=== PATIENT | female | born 1965 | race Caucasian/White ===

== ENCOUNTER 2022-04-18 00:14 | Day surgery (SDC) | payer BC, SELFPAY ==
[2022-04-04 15:07] VITALS: BMI 28.5
[2022-04-18 08:02] VITALS: BP 144/110; PULSE 69; RESP 18; TEMP 36.3; O2SAT 100
[2022-04-18] MEDS: LACTATED RINGERS 1,000 ML 150 ML IV CONT (08:10)
--- NOTE | 2022-04-18 08:48 | WPDANESEPPF ---
Anes - Initial Pre Proc Eval Procedure: Operation Date: 04/18/22 09:30 Proposed Procedures p Colonoscopy - Nathaniel Palacios MD Date/Time: 04/18/22 08:48 Surgeon: Nathaniel Palacios MD Pre Op Diagnosis: Occult GI bleed, Change in bowel habits Patient Data Age: 56 Gender: F Height: 1.68 m Weight: 79.3 kg Last Vital Signs Temp 97.4 F L 04/18/22 08:02 Pulse 69 04/18/22 08:02 Resp 18 04/18/22 08:02 BP 144/110 H 04/18/22 08:02 Pulse Ox 100 04/18/22 08:02 O2 Del Method Room Air 04/18/22 08:02 Allergies Allergy/AdvReac Type Severity Reaction Status Date / Time No Known Allergies Allergy Verified 04/18/22 08:01 Home Medications Medication Instructions Recorded Confirmed Type sodium sul 1.479 gram-potas ch See Rx Instructions PO PER PKG DIR 02/20/22 04/18/22 Rx 0.188 gram-magnes sul 0.225 gram #24 tabs tablet (Sutab) Patient hx anesthesia problems: none Family hx anesthesia problems: none Results Review: All pre-operative results and documents have been reviewed as part of the pre-operative evaluation. [facility] Social History Social History Smoking status: Former smoker Tobacco type: cigarettes Alcohol intake: current Alcohol use details: occasional use Substance use: never Substance use type: does not use Living arrangements: with family Spiritual care concerns: No Anes - Eval Final PreProcedure Day of Procedure 04/18/22 08:48 Patient weight: normal Heart: regular rate and rhythm Lungs: clear to auscultation Airway: Mallampati scale class II Neurological: alert and oriented Last oral intake: >/= 8 hours ASA classification: II Emergent: no Anesthetic plan: proceed Anesthesia type and monitoring: general GIVS and standard monitoring Results Review: All pre-operative results and documents have been reviewed as part of the pre-operative evaluation. Informed Consent: The patient's anesthetic plan and its attendant risks and benefits were discussed with the patient/family/POA. Questions were solicited and answers provided to the satisfaction of the patient/family/POA.
--- NOTE | 2022-04-18 08:54 | PM.HPGS ---
History of Present Illness History of Present Illness Consent: Risks, benefits, and alternatives have been discussed and questions answered. Patient agrees to proceed with procedure. Chief complaint: Occult GI bleed, Change in bowel habits Narrative: Shelby Abrams is a 56 year old female with small amount of blood after BM, last colonoscopy 2018 Review of Systems Constitutional: Constitutional: Denies headache(s) and Denies weakness Eyes: Eyes: Denies blurry vision ENT: Reports Normal hearing present, Denies headache(s) and Denies neck pain Cardiovascular: Cardiovascular: Denies chest pain and Denies dyspnea Respiratory: Respiratory: Denies dyspnea Gastrointestinal: Gastrointestinal: Reports no additional gastrointestinal complaints Genitourinary: Genitourinary: Denies dysuria Musculoskeletal: Musculoskeletal: Denies neck pain Integumentary/Breasts: Skin/Breast: Denies dry skin Neurologic: Reports Normal hearing present, Denies headache(s) and Denies weakness Psychiatric: Psychiatric: Denies anxiety Endocrine: Endocrine: Denies change in body appearance Hematologic/Lymphatic: Hematologic/Lymphatic: Denies easy bleeding Allergic/Immunologic: Allergic/Immunologic: Denies urticaria PMF Past Medical History Medical History (Updated 04/18/22 @ 08:55 by Nathaniel Palacios MD) Blood in stool Social History Social History Smoking status: Former smoker Tobacco type: cigarettes Alcohol intake: current Alcohol use details: occasional use Substance use: never Substance use type: does not use Living arrangements: with family Spiritual care concerns: No Meds Home Medications and Allergies Home Medications Medication Instructions Recorded Confirmed Type sodium sul 1.479 gram-potas ch See Rx Instructions PO PER PKG DIR 02/20/22 04/18/22 Rx 0.188 gram-magnes sul 0.225 gram #24 tabs tablet (Sutab) Allergies Allergy/AdvReac Type Severity Reaction Status Date / Time No Known Allergies Allergy Verified 04/18/22 08:01 Vital Signs Vital Signs - 24 hr 04/18/22 08:02 Temperature 97.4 F L Pulse Rate 69 Respiratory Rate 18 Blood Pressure 144/110 H Pulse Oximetry 100 Oxygen Delivery Room Air Exam Const: General: comfortable and no acute distress HENMT: General nose exam: Normal nares present Eyes: General: appearance normal, both eyes and all related structures Neck: Neck: no JVD Resp: Auscultation: clear to auscultation bilaterally Cardio: Rate: regular rate Rhythm: regular rhythm GI: Inspection: non-distended GI Palp: Yes Soft to palpation Skin: General skin exam: normal color Neuro: General: gait normal Speech: normal speech Extrem: General: normal to inspection Psych: Mental Status: mental status grossly normal Assessment and Plan Assessment and plan (1) Blood in stool: Code(s): K92.1 - Melena Status: Acute Assessment and Plan: probably perianal will do colonoscopy
[2022-04-18 09:16] VITALS: BP 100/65; PULSE 66; RESP 20; O2SAT 100
[2022-04-18 09:26] VITALS: BP 119/70; PULSE 56; RESP 18; O2SAT 100
[2022-04-18 09:36] VITALS: BP 146/80; PULSE 21; RESP 18; O2SAT 100
== END 2022-04-18 09:42 | disposition home or self-care (01) ==
PROVIDERS: PCP Internal Medicine; Visit Provider Internal Medicine Gastroenterology
PROC: 0DJD8ZZ Inspection of Lower Intestinal Tract, Via Natural or Artificial Opening Endoscopic (ICD-10-PCS; CPT 45378; principal; 2022-04-18 09:30)
DX: Z12.11 Encounter for screening for malignant neoplasm of colon (principal); K57.30 Diverticulosis of large intestine without perforation or abscess without bleeding; K51.20 Ulcerative (chronic) proctitis without complications; K63.5 Polyp of colon; K92.1 Melena; Z87.891 Personal history of nicotine dependence
CPT/HCPCS: 45380; 45385; 88305; J2704; J7120

== ENCOUNTER 2023-05-22 14:45 | Outpatient (CLI) | payer BC, SELFPAY ==
--- NOTE | ~2023-05-22 | XR_ITS ---
EXAMINATION: XR ankle RT min 3V INDICATION: Lateral ankle pain TECHNIQUE: Four views of the left ankle are obtained. COMPARISON: None available FINDINGS: There are subtle heterotopic ossifications distal to the lateral malleolus. There is soft t issue swelling of ankle. Bone alignment is normal. A plantar calcaneal enthesophyte is noted. 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 IMPRESSION: 1. Probable avulsion injury of the lateral malleolus. Reviewed, dictated and finalized at location A.
== END 2023-05-22 14:46 | disposition home or self-care (01) ==
LOC: CHSIMG 14:48
PROVIDERS: PCP Internal Medicine; Visit Provider Nurse Practitioner Family
DX: M25.571 Pain in right ankle and joints of right foot (principal)
CPT/HCPCS: 73610

== ENCOUNTER 2023-06-21 13:54 | Outpatient (CLI) | payer BC, SELFPAY ==
--- NOTE | ~2023-06-21 | XR_ITS ---
XR ankle RT min 3V DATE: 06/21/2023 14:19 INDICATION: Avulsion fracture follow-up TECHNIQUE: 4 views COMPARISON: 05/22/2023 right ankle FINDINGS: No soft tissue swelling is evident. There is no significant change appearance of small bony ossicles adjacent to the lateral malleolus si nce 05/22/2023. No interval fracture or dislocation of the ankle. Ankle mortise appears intact. Mild plantar calcaneal enthesopathy. IMPRESSION: No significant change since 05/22/2023 Reviewed, dictated and finalized at location A.
== END 2023-06-21 13:55 | disposition home or self-care (01) ==
LOC: CHSIMG 13:56
PROVIDERS: PCP Internal Medicine; Visit Provider Nurse Practitioner Family
DX: S82.891A Other fracture of right lower leg, initial encounter for closed fracture (principal)
CPT/HCPCS: 73610

== ENCOUNTER 2024-10-13 00:07 | Day surgery (SDC) | payer BC, SELFPAY ==
[2024-10-06 12:16] VITALS: BMI 28.3
--- NOTE | 2024-10-06 12:27 | PC.NURSE ---
Addendum entered by Mango Plascencia RN 10/06/24 12:35: Patient has instructions from office for bowel prep and knows is NPO after midnight day of surgery. Original Note: Report to the Outpatient Waiting Room, entrance under the green pavilion located off [facility], at time _0600_ on date _[id number]_. Planned Procedure Time: _0730_.? Time changes happen often and if your time is changed the preop area will call you the afternoon before. - You and your visitor will be asked to self-screen and do not enter if you have any COVID symptoms. Please call surgeon if you need to reschedule. - A mask is optional within the hospital at this time. Patients may have clear liquids (water, carbonated beverages, clear teas, apple juice) until 3 hours prior to surgery with a maximum of 20 ounces. - No food from midnight until time of surgery and no smoking. This includes no chewing gum, candy or mints. Take only the following medications with a SIP of water on the morning of surgery: ___None DO NOT STOP ANY OF YOUR OTHER PRESCRIPTION MEDICATIONS PRIOR TO SURGERY EXCEPT THE FOLLOWING Medications to discontinue per physician Multivitamin and Probiotic Date to take last zffm___[id number] Please no make-up, nail syriac, hairspray, perfume, deodorant, or body powder the day of surgery.? No jewelry (including any body piercings) or valuables the day of surgery, leave them at home.? Please take a shower or bath the night before, or the morning of, surgery with an antibacterial soap.? Wear comfortable, loose fitting clothing.? - Jewelry must be removed prior to entering the operating room.? Rings and piercings that are not removed may be cut off. - The hospital will not accept responsibility for valuables.? - Please leave all valuables, including medications, at home the day of surgery. If you are going home after surgery, a licensed national flatbed truck driver must drive you home.? - NO public transportation without another adult if you receive anesthesia. - We recommend that an adult stay with you for 24 hours following discharge. - We also recommend that you do not drive, make important decision, drink alcoholic beverages, or take any drugs that were not prescribed by your health care provider for at least 24 hours after your discharge time. Follow any additional instructions given to you from your surgeon. Telephone instructions given to __Shelby__and asked if any additional questions and then verbalized understanding. Patient advised to call surgeon office or pre surgery nurse liaison [phone] if any additional questions.
[2024-10-13] VITALS (8 sets, daily range): BP systolic 124–159; BP diastolic 77–90; PULSE 62–93; RESP 14–17; TEMP 36.1–36.2; O2SAT 97–100
[2024-10-13] MEDS: ACETAMINOPHEN 500 MG TABLET 1000 MG PO (06:30)
[2024-10-13] MEDS: LACTATED RINGERS 1,000 ML 30 ML IV CONT ×2 (06:30→09:15)
[2024-10-13] MEDS: KETOROLAC 15 MG/ML VIAL (*BKC) IV PUSH ×2 (06:30→08:48)
--- NOTE | 2024-10-13 07:20 | P.PNAN_ITS ---
Anes - Initial Pre Proc Eval Procedure: Operation Date: 10/13/24 07:30 Proposed Procedures p Anorectal Examination Under Anesthesia, Excisional Hemorrhoidectomy - Bo Evans MD Date/Time: 10/13/24 07:20 Surgeon: Bo Evans MD Pre Op Diagnosis: bleeding grade 3 internal hemorrhoids Patient Data Age: 58 Gender: F Height: 1.68 m Weight: 79.5 kg Allergies Allergy/AdvReac Type Severity Reaction Status Date / Time No Known Allergies Allergy Verified 10/06/24 12:15 Home Medications ?Medication ?Instructions ?Recorded ?Confirmed ?Type lactobacillus combination no.9 4 4,000 mmu cells PO DAILY 10/06/24 10/06/24 History billion cell capsule (Adult 50 Plus Probiotic) mv-mn-iron fum-folic acid-omega 3, 1 cap PO DAILY 10/06/24 10/06/24 History 6, 9 no.3 18 mg-600 mcg capsule Patient hx anesthesia problems: none Family hx anesthesia problems: none Results Review: All pre-operative results and documents have been reviewed as part of the pre- operative evaluation. [facility] Past Medical History Medical History Blood in stool Family History Family History Father Hypertension Social History Social History Years smoked: 10 Smoking status: Former smoker Tobacco type: cigarettes and e-cigarettes/vaping Smoking end date: 10/06/17 Additional smoking assessment comments: Only vapes Alcohol intake: current Drinks per week: 6 Alcohol use details: occasional use Substance use: never Substance use type: does not use Living arrangements: with family Spiritual care concerns: No Anes - Eval Final PreProcedure Day of Procedure 10/13/24 07:20 Patient weight: normal Heart: regular rate and rhythm Lungs: clear to auscultation Airway: Mallampati scale Neurological: alert and oriented Last oral intake: >/= 8 hours ASA classification: II Emergent: no Anesthetic plan: proceed Anesthesia type and monitoring: general ETT and standard monitoring Results Review: All pre-operative results and documents have been reviewed as part of the pre- operative evaluation. Ex smoker, quit 2017, currently vapes. Informed Consent: The patient's anesthetic plan and its attendant risks and benefits were discussed with the patient/family/POA. Questions were solicited and answers provided to the satisfaction of the patient/family/POA.
--- NOTE | 2024-10-13 07:22 | PM.IMHP ---
H&P: HPI History of Present Illness Date/Time: 10/13/24 07:22 Chief Complaint: Symptomatic hemorrhoids Narrative: Prior to the patients visit, I reviewed the office note of Pearl White PA-C. Patient has a small, reducible left inguinal hernia on exam. Recommended robotic assisted laparoscopic left inguinal hernia repair with mesh to be performed in the OR under general anesthesia as an outpatient. The surgery was explained in detail including description, risks, benefits, the use of mesh, post-operative restrictions, recovery, and expected outcome. Will also obtain cardiac clearance prior to surgery. He is in agreement and would like to proceed as discussed. Review of Systems Review of Systems: The remainder of the review of systems to include constitutional, HEENT, cardiovascular, respiratory, GI, , integumentary, musculoskeletal, endocrine, immunologic, hematologic, psychiatric, and neurologic are all negative except for which is mentioned above in the HPI. [facility] Past Medical History Medical History Blood in stool Family History Family History Father Hypertension Social History Social History Years smoked: 10 Smoking status: Former smoker Tobacco type: cigarettes and e-cigarettes/vaping Smoking end date: 10/06/17 Additional smoking assessment comments: Only vapes Alcohol intake: current Drinks per week: 6 Alcohol use details: occasional use Substance use: never Substance use type: does not use Living arrangements: with family Spiritual care concerns: No Meds Home Medications and Allergies Home Medications ?Medication ?Instructions ?Recorded ?Confirmed ?Type lactobacillus combination no.9 4 4,000 mmu cells PO DAILY 10/06/24 10/06/24 History billion cell capsule (Adult 50 Plus Probiotic) mv-mn-iron fum-folic acid-omega 3, 1 cap PO DAILY 10/06/24 10/06/24 History 6, 9 no.3 18 mg-600 mcg capsule Allergies Allergy/AdvReac Type Severity Reaction Status Date / Time No Known Allergies Allergy Verified 10/06/24 12:15 Exam Const: General: comfortable and no acute distress HENMT: Ears: TM's normal bilaterally Face/Nose/Sinus: Normal nares present Mouth: Yes moist mucous membranes Eyes: General: appearance normal, both eyes and all related structures Sclera: sclerae normal Pupils: Equal, round and reactive pupils present Neck: Neck: supple and no JVD Resp: Effort & Inspection: normal respiratory effort Auscultation: clear to auscultation bilaterally Cardio: Rate: regular rate Rhythm: regular rhythm GI: GI Palp: Yes Soft to palpation, No Firmness to palpation present (GI), No Tenderness to palpation present (GI), No Guarding due to palpation present (GI) and No Hernia present Other: Normal sphincter tone. Internal hemorrhoid prolapsing posterior at 12:00 position with patient prone. Tissue is friable but non thrombosed. This could also be a pedunculated on long stalk in the distal rectum or anal canal. No other significant hemorrhoids seen. Skin: General skin exam: normal color and no rashes or lesions noted Neuro: General: gait normal Speech: normal speech Motor exam (neuro): 5/5 motor strength present throughout Sensory Exam: normal sensation Extrem: General: normal to inspection Psych: Mental Status: mental status grossly normal Affect: normal affect Assessment and Plan Assessment and plan (1) Prolapsed internal hemorrhoids, grade 3: Code(s): K64.2 - Third degree hemorrhoids Status: Acute Assessment and Plan: I have reviewed office notes from Souleymane More MD prior to patient visit. Based on clinical exam, the lesion could either be a large prolapsing hemorrhoid or pedunculated anorectal polyp. Either way it should be removed due to to intermittent bleeding copious drainage. I recommend an anorectal EUA, excisional hemorrhoidectomy under general anesthesia as an outpatient. Procedure risks, benefits, indications, and expected outcomes were discussed with the patient in detail. All questions were answered. Hemorrhoid prep given. Patient would like to proceed. Follow-up 2 weeks postoperatively.
--- NOTE | 2024-10-13 07:25 | WPDHPUPDATE1 ---
History and Physical Update Update Date/Time: 10/13/24 07:25 History and Physical has been reviewed, including an updated exam of the patient. There are NO changes in the patient's condition. Risks, benefits, and alternatives have been discussed and questions answered. Patient agrees to proceed with procedure.
[2024-10-13] MEDS: ceFAZolin 2 GM/D5W 50 ML 2 GM/50 ML BAG IVPB (07:42)
[2024-10-13] MEDS: LIDO 1%/EPINEPHRINE 1:100,000 20 ML VIAL 30 ML INFILTRATE (08:05)
[2024-10-13] MEDS: BUPivacaine HCL 0.5% PF 30 ML VIAL INFILTRATE (08:06)
[2024-10-13] MEDS: LIDOCAINE 2% GEL UROJET 10 ML PKG MUCOUS MEM (08:48)
--- NOTE | 2024-10-13 10:59 | PM.OP ---
Procedure Note - Brief Procedure Note - Brief Date of procedure: 10/13/24 bleeding grade 3 internal hemorrhoids Post-op diagnosis: Other (Bleeding grade 3 internal hemorrhoids and anal canal polyp) Procedure performed: Anal canal polypectomy x1 and excisional hemorrhoidectomy x2 Surgeon: Bo Evans MD Anesthesia: GETShira Estimated blood loss (mL): 25 Drains: No Packing: Yes (Gelfoam packing anal canal) Pathology: Yes (Hemorrhoids and anal canal polyp sent to pathology separately) Complications: No immediate complications Condition: Stable Disposition: PACU
--- NOTE | 2024-10-14 14:02 | P.OP_ITS ---
Procedure Note - Detailed Date of Procedure 10/13/24 Pre-op Diagnosis Bleeding grade 3 internal hemorrhoids Post-op Diagnosis Other ( Grade 3 bleeding internal hemorrhoids and anal canal polyp) Procedure Performed EUA, anal polypectomy and excisional hemorrhoidectomy x2 Surgeon Bo Evans MD Anesthesia General Indications Patient is a 58-year-old female who presented initially to the office complaining of a long history of irritation, pain, and bleeding from some tissue protruding lateral anal canal which she thought was hemorrhoids. On examination the office she was found to have some grade 3 internal hemorrhoids but also a somewhat pedunculated lesion consistent with an anal polyp. She is b rought to the operating now for evaluation under anesthesia as well as excisional hemorrhoidectomy and anal polypectomy. Findings The patient had an anal polyp just at the anal verge starting just inside the anal opening associated with some internal hemorrhoid tissue. The polyp was friable and bled easily with manipulation. This was located at the 2 o'clock position on the right posterior lateral side with the patient the prone position. Upon further evaluation of the anal canal and distal rectum with direct visualization I could not see any other evidence of other polyps in the very distal rectum anal canal. She did have 2 other internal hemorrhoids located at the 6 o'clock position anteriorly and the 10 o'clock position on the left posterior lateral side with the patient prone. Description of Procedure After informed consent was obtained patient brought to the operating room she was placed under general endotracheal anesthesia on the gurney then turned into the prone vielka-knife position on the operating room table. Great care was taken make sure all the pressure points were well padded. The buttocks were then taped apart to expose the perianal region. The area was then prepped and draped in the usual sterile fashion. A time-out was then performed correctly identify ing the patient as well as the procedure to be performed. She was given perioperative IV antibiotics. I 1st started by performing gentle dilation of the anal sphincters with the anal speculum. Once this was done I irrigated out the anal canal and then performed a circumferential evaluation of the very distal rectum and anal canal. There were no polyps in the distal rectum. In the anal canal just inside the anal opening at the anal verge was a polypoid lesion associated with an internal hemorrhoid at the 2 o'clock position on the patient's right posterior lateral side. The polypoid lesion was friable and bled easily with manipulation. proceeded to excise off the hemorrhoid tissue as well as the associated anal polyp. With anal speculum in place I then proceeded to inject 1% lidocaine mixed with 0.5% Marcaine some epinephrine underneath the hemorrhoid tissue and polypoid lesion. A 2-0 chromic suture was then placed at the apex of the hemorrhoid tissue above the dentate line. A scalp was then used to incise the tissue on either side of the hemorrhoid tissue all the way out to the perianal skin in a bisi configuration. Electrocautery was then used to incise the tissue at the perianal skin and then Metzenbaum scissors was used to spread underneath the hemorrhoid tissue but superficial to the internal sphincter muscle fibers. I could easily palpate the internal exter nal sphincter muscles and preserved these without injury throughout the dissection. The tissue was excised off utilized electrocautery and sent to pathology for examination labeled as hemorrhoid and anal polyp at 2 o'clock. The 2-0 chromic suture was then used to approximate the edges of the tissue and close the incision and a running locking fashion out to the anal verge. At this point I transition to using 3-0 Vicryl suture to completely close the incision and approximate the edges of the perianal skin. Hemostasis was good in the incision. I then further evaluated the anal canal and there was a internal hemorrhoid at the 6 o'clock position anteriorly and the 10 o'clock position of the left posterior lateral side with the patient prone. Both of these hemorrhoids were then excised out a similar fashion. The both had the local anesthetic mixture injected underneath the hemorrhoid tissue and then a 2-0 chromic suture was placed at the apex of the hemorrhoid above the dentate line. Skin a scalp was then used to incise tissue on either side of the hemorrhoid and a bisi configuration extending out onto the perianal skin. Metzenbaum scissors were used to spread underneath the hemorrhoid tissue to lift the tissue off of the sphincter muscles and electrocautery is used to completely excise the soft tissue. Both hemorrhoids were then sent to pathology separately located as hemorrhoid 6 o'clock and hemorrhoid at 10 o'clock. Both incisions were then closed by running the 2-0 chromic suture in a locking fashion to the anal verge and then transition into a 3-0 Vicryl suture to completely close incision approximate the edges of the perianal skin. There is no stenosis of the anal canal. All 3 incisions appeared to be hemostatic. I then injected additional local anesthetic mixture around all the incisions then performed injection of bilateral pudendal nerve block. A lidocaine jelly cover piece of Gelfoam was then placed into the anal canal for packing. The perianal region was then cleaned and then dry gauze , ABD pad, and disposable underwear was used for final dressing. The patient tolerated the procedure well no complications. All sponges, needles, and instrument counts were correct at the end procedure. EBL was _25__cc. The patient was awakened and taken to recovery in stable and satisfactory condition. Implants None Estimated Blood Loss 25 Drains No Packing Yes ( Gelfoam packing anal canal) Pathology Yes ( hemorrhoids and anal polyp sent to pathology) Complications No immediate complications Condition Stable Disposition PACU [facility] Billing Surgery - Charge Forward: Surgery Billing
== END 2024-10-13 11:05 | disposition home or self-care (01) ==
PROVIDERS: PCP Internal Medicine; Visit Provider Surgery
PROC: (CPT 46260; principal; 2024-10-13 07:30)
DX: K64.8 Other hemorrhoids (principal); K64.4 Residual hemorrhoidal skin tags; K51.40 Inflammatory polyps of colon without complications; F17.290 Nicotine dependence, other tobacco product, uncomplicated
CPT/HCPCS: 46260; 88304; A9270; J0690; J1100; J1885; J2004; J2405; J2704; J3010; J7120